=== PATIENT | male | born 1970 | race Caucasian/White ===

== ENCOUNTER 2018-02-14 16:52 | Emergency (ER) | payer OTHER ==
[~2018-02-14] VITALS: Ht 188 cm; Wt 111.1 kg
[2018-02-14 16:54] VITALS: BP 148/87
--- NOTE | 2018-02-14 17:28 | PHYS DOC ---
Adult General Chief Complaint Chief Complaint: LOWEREXTREMITY INJURY HPI HPI Patient is a 47-year-old male who presents to the emergency department for evaluation. [place], when he felt a sudden "punch", and pain in the medial aspect of his right calf. He is unable to bear weight on his leg secondary to pain, but is able to fully flex and extend his ankle. He denies any pain at the knee, or any anterior/bony tenderness. He denies any numbness, weakness, or any other injuries. Palpation of his right medial calf worsens his pain, as his ambulation. There are no leading factors to his symptoms. Review of Systems Review of Systems Constitutional: Denies fever or chills [] Musculoskeletal: Denies neck or back pain or joint pain, or any muscle pain other than medial right calf pain. [] Neurologic: Denies headache, focal weakness or sensory changes [] Allergies Allergies Allergies Coded Allergies Type Severity Reaction Last Updated Verified No Known Drug Allergies 02/14/18 No Physical Exam Physical Exam PHYSICAL EXAM: CONSTITUTIONAL: Well developed, well nourished HEAD: normocephalic, atraumatic EENT: PERRL, EOMI. Conjunctivae normal color, sclerae non-icteric; moist mucous membranes. NECK: Supple, non-tender; no meningismus. LUNGS: Lungs CTA, breathing even and unlabored. Normal air movement. HEART: Regular rate and rhythm, no murmur CHEST: No deformity; non-tender ABDOMEN: The abdomen is soft, and non-tender, no masses or bruits. EXTREM: There is focal tenderness to palpation to the medial belly of the gastrocnemius muscle on the right. The lateral belly is nontender. There is no tenderness to palpation along the course of the Achilles tendon, and the patient is able to fully flex and extend his ankle. Plantar flexion is intact against resistance with normal strength. Stevens's test is normal. There is no tenderness to palpation of the knee, and there is no tenderness to palpation along the popliteal fossa, at the proximal insertion of the gastrocnemius muscles. There is no bony tenderness to palpation of the tibia or fibula, which are readily palpable. There is no pedal edema noted. The remainder of extremities are unremarkable, with normal ROM; no deformity, no calf tenderness. Normal pulses palpable in all extremities. There is no pedal edema. SKIN: No rash; no diaphoresis NEURO: Alert; normal speech and cognition; CN's grossly intact; strength grossly intact without focal deficit. BACK: No CVA TTP. EKG EKG [] Radiology/Procedures Radiology/Procedures [] Course & Med Decision Making Course & Med Decision Making I discussed doing an with the patient, but it is low yield, given the suspicion for a muscle injury as opposed to a bony injury. The patient declined an x-ray. I do not suspect the patient has a tendon rupture, I suspect he has a small tear within the muscle belly itself. I discussed importance of close orthopedic follow-up, for definitive management and possible MRI, and return precautions. The patient will be given an Lalo wrap and crutches. Dragon Disclaimer Dragon Disclaimer This electronic medical record was generated, in whole or in part, using a voice recognition dictation system. Departure Departure: Impression: Primary Impression: Muscle strain Additional Impression: Muscle tear Disposition: 01 HOME, SELF-CARE Condition: STABLE Referrals: CHUCK GUY (PCP) Patient Instructions: Crutch Use, Muscle Strain, Muscle Tear Additional Instructions: Ibuprofen 400-600 mg every 6 hours may help improve your symptoms. Applying a heating pad to the affected area may help improve your symptoms. Follow-up with orthopedics at [facility], . Please call Thursday to schedule point. Problem Qualifiers ALIX JEAN MD Feb 14, 2018 17:28
== END 2018-02-14 17:32 | disposition home or self-care (01) ==
LOC: ER 16:52
DX: S86.811A Strain of other muscle(s) and tendon(s) at lower leg level, right leg, initial encounter (principal); X50.9XXA Other and unspecified overexertion or strenuous movements or postures, initial encounter; Y93.44 Activity, trampolining; Y92.830 Public park as the place of occurrence of the external cause; Y99.8 Other external cause status
CPT/HCPCS: 99283